=== PATIENT | male | born 1995 | race African-American/Black ===

== ENCOUNTER 2021-09-30 21:56 | Emergency (ER) | payer MEDICAID ==
[~2021-09-30] VITALS: Ht 170.2 cm; Wt 81.6 kg
[2021-09-30 21:58] VITALS: BP_SYST 114
[2021-09-30] MEDS ORDERED: IPRATROPIUM/ALBUTEROL SULFATE 3 ML AMPUL.NEB (DUONEB) INH ONE (22:15)
[2021-09-30] MEDS ORDERED: ALBMDI INH (22:59)
[2021-09-30] MEDS ORDERED: PRED20TA PO (22:59)
[2021-09-30] MEDS ORDERED: predniSONE 20 MG TABLET PO ONE (23:00)
== END 2021-09-30 23:19 | disposition home or self-care (01) ==
LOC: SED 21:56
DX: J45.901 Unspecified asthma with (acute) exacerbation (principal); R05.9 Cough, unspecified; R06.02 Shortness of breath; R07.9 Chest pain, unspecified; Z79.899 Other long term (current) drug therapy
CPT/HCPCS: 99283; 94640; J7512